=== PATIENT | female | born 2000 | race African-American/Black ===

== ENCOUNTER 2023-09-14 20:49 | Emergency (ER) | payer BC ==
[~2023-09-14] VITALS: Ht 157.5 cm; Wt 64.0 kg
[2023-09-14 20:57] VITALS: BP 108/61; PULSE 68; RESP 16; TEMP 99.1
[2023-09-14] MEDS ORDERED: IBUP-45 PO (22:35)
[2023-09-14] MEDS ORDERED: migraine med PO (22:35)
[2023-09-14] MEDS: ACETAMINOPHEN 325 MG TABLET PO ONE (23:21)
[2023-09-14] MEDS: ONDANSETRON HCL 4 MG TABLET PO ONE (23:21)
[2023-09-14] MEDS ORDERED: AMOX250C4 PO (23:33)
== END 2023-09-14 23:44 | disposition home or self-care (01) ==
LOC: EMS 20:50
DX: H92.01 Otalgia, right ear (principal); Z98.890 Other specified postprocedural states
CPT/HCPCS: 99283; Q0162